=== PATIENT | male | born 1955 | race Caucasian/White ===

== ENCOUNTER 2020-01-05 15:25 | Emergency (ER) | payer BC ==
[2020-01-05] MEDS ORDERED: Lidocaine 1% MPF 5 ML VIAL INJ ONE (15:39)
[2020-01-05 15:49] VITALS: BP 133/91
[2020-01-05] MEDS ORDERED: Tetan/Diph/Pertus SYR(Tdap)* 0.5 ML SYR(BOOSTRIX) use SYR contains LATEX IM ONE (16:15)
== END 2020-01-05 16:30 | disposition home or self-care (01) ==
LOC: UCCORT 15:25